=== PATIENT | female | born 1990 | race African-American/Black ===

== ENCOUNTER 2017-08-12 05:21 | Emergency (ER) | payer BC ==
[~2017-08-12] VITALS: Ht 160 cm; Wt 141.6 kg
[~2017-08-12 05:21] MED LIST: DICY1TAB26 PO; SULF-154 PO; ZOFR4TAB3 SL
[2017-08-12 05:27] VITALS: BP 139/79; PULSE 95; RESP 12; TEMP 98.7; O2SAT 99
[2017-08-12 05:35] VITALS: BP 139/79; PULSE 95; RESP 16; TEMP 98.7; O2SAT 99
[2017-08-12] MEDS ORDERED: ACETAMINOPHEN 650 MG/20.3 ML UDC PO ONE (05:45)
[2017-08-12] MEDS ORDERED: ACET500L PO (05:47)
--- NOTE | 2017-08-12 05:47 | PD ---
HPI Chief Complaint: Cold / Flu Symptoms Time Seen by Provider: 05:29 Travel History International Travel<30 days: No Contact w/Intl Traveler<30days: No Traveled to known affect area: No History of Present Illness HPI 27yo F with no PMH presents to the ED with c/o throat pain, nasal congestion, cough for about 3 days. Also with epistaxis yesterday. Had fever yesterday and took theraflu. Denies any chest pain, sob, ear pain, n/v, abdominal pain, diarrhea, urinary complaints. Pt able to eat and drink normally and denies any drooling or change in voice. Pt states she has to work today. PFSH Past Medical History Diminished Hearing: No ?: Not LMP: 07/14/2017 Social History Alcohol Use: Yes (occasional) Tobacco Use: No Substance Use: No Allergies-Medications (Allergen,Severity, Reaction): Coded Allergies: miranda flavor (Verified Allergy, Mild, Hives, 08/12/17) Reported Meds & Prescriptions Reported Meds & Active Scripts Active Acetaminophen Extra Strength Liq (Acetaminophen) 500 Mg/15 Ml Soln 500 Mg PO Q6HR PRN 5 Days Septra Ds (Trimethoprim/Sulfamethoxazole) Tab 1 Tab PO BID Bentyl (Dicyclomine HCl) 20 Mg Tab 20 Mg PO Q6H PRN FOR CRAMPS Zofran ODT (Ondansetron HCl) 4 Mg Tab 4 Mg SL Q6H PRN FOR NAUSEA/VOMITING Review of Systems Except as stated in HPI: all other systems reviewed are Neg Physical Exam Narrative GENERAL: 27yo F not in distress. SKIN: Focused skin assessment warm/dry. HEAD: Atraumatic. Normocephalic. EYES: Pupils equal and round. No scleral icterus. No injection or drainage. ENT: Dry blood in bilateral anterior kisselbach plexus. Throat: Uvula midline. No tonsils since pt had tonsillectomy. No uvula swelling. NECK: +TTP anterior cervical lymphadenopathy. CARDIOVASCULAR: Regular rate and rhythm. No murmur appreciated. RESPIRATORY: No accessory muscle use. Clear to auscultation. Breath sounds equal bilaterally. GASTROINTESTINAL: Abdomen soft, non-tender, nondistended. MUSCULOSKELETAL: No obvious deformities. No clubbing. No cyanosis. No edema. NEUROLOGICAL: Awake and alert. No obvious cranial nerve deficits. Motor grossly within normal limits. Normal speech. PSYCHIATRIC: Appropriate mood and affect; insight and judgment normal. Data Data Last Documented VS Vital Signs Date Time Temp Pulse Resp B/P (MAP) Pulse Ox O2 Delivery O2 Flow Rate FiO2 08/12/17 05:38 16 99 Room Air 08/12/17 05:35 98.7 95 139/79 (99) Orders Orders Group A Rapid Strep Screen (08/12/17 05:38) Acetaminophen 650 Mg/20 Ml Liq (Tylenol (08/12/17 05:45) Acetaminophen (Tylenol) (08/12/17 06:00) Strep Culture (Group A) (08/12/17 05:48) MDM Medical Decision Making Medical Screen Exam Complete: Yes Emergency Medical Condition: Yes Differential Diagnosis URI vs. viral syndrome vs. strep pharyngitis Narrative Course 27yo F with throat pain, nasal congestion and cough for 3 days. Also had fever yesterday. Likely URI but will do rapid strep. Pt given acetaminophen. Pt wants a work note so will give work note for today. She is otherwise well appearing and saturating at 99% on RA with clear lung sounds. Pt reevaluated at bedside and feels better. Group A strep negative. Return precautions given. Diagnosis Primary Impression: URI (upper respiratory infection) Qualified Codes: J06.9 - Acute upper respiratory infection, unspecified Patient Instructions: General Instructions Departure Forms: Tests/Procedures, Work Release Enter return to work date: Aug 14, 2017 Additional Instructions: Please follow up with your primary care physician. Return to the ED if symptoms worsen. Med/Other Pt SpecificInfo: Prescription(s) given Scripts Acetaminophen Liq (Acetaminophen Extra Strength Liq) 500 Mg/15 Ml Soln 500 MG PO Q6HR Y for PAIN SCALE 1 TO 4 for 5 Days, ML 0 Refills Prov: Gabby Alvarez 08/12/17 Disposition: 01 DISCHARGE HOME Condition: Stable AlvarezJenni mosquedanilesh ARCE Aug 12, 2017 05:47
[2017-08-12] MEDS ORDERED: ACETAMINOPHEN 325 MG TAB PO ONE (06:00)
[2017-08-12 06:47] VITALS: BP 140/79
== END 2017-08-12 06:53 | disposition home or self-care (01) ==
LOC: PHED 05:21
DX: J06.9 Acute upper respiratory infection, unspecified (principal)
CPT/HCPCS: 87081; 87880; 99283